=== PATIENT | female | born 1945 | race Two or more races ===

== ENCOUNTER 2018-11-10 10:23 | Outpatient (CLI) | payer OTHER | END 2018-11-10 11:26 | disposition home or self-care (01) | LOC: RAD 501 10:23 | DX: S52.501A Unspecified fracture of the lower end of right radius, initial encounter for closed fracture (principal); M25.512 Pain in left shoulder ==

== ENCOUNTER 2022-01-14 13:53 | Outpatient (CLI) | payer OTHER | END 2022-01-14 14:10 | disposition home or self-care (01) | LOC: TOM 13:53 | DX: M31.6 Other giant cell arteritis (principal) ==

== ENCOUNTER 2022-01-14 14:29 | Outpatient (CLI) | payer OTHER | END 2022-01-14 14:47 | disposition home or self-care (01) | LOC: LAB 14:29 | DX: M31.6 Other giant cell arteritis (principal); G04.81 Other encephalitis and encephalomyelitis; M06.9 Rheumatoid arthritis, unspecified ==

== ENCOUNTER 2022-01-20 09:03 | Outpatient (CLI) | payer OTHER | END 2022-01-20 09:04 | disposition home or self-care (01) | LOC: LAB 09:03 | DX: M31.6 Other giant cell arteritis (principal); G04.81 Other encephalitis and encephalomyelitis; M06.9 Rheumatoid arthritis, unspecified ==

== ENCOUNTER 2022-01-22 09:02 | Outpatient (CLI) | payer OTHER | END 2022-01-22 10:51 | disposition home or self-care (01) | LOC: LAB 09:02 | DX: E03.9 Hypothyroidism, unspecified (principal); E55.9 Vitamin D deficiency, unspecified; Z12.11 Encounter for screening for malignant neoplasm of colon ==

== ENCOUNTER 2022-01-23 10:29 | Outpatient (CLI) | payer OTHER | END 2022-01-23 12:41 | disposition home or self-care (01) | LOC: LAB 10:29 | DX: E55.9 Vitamin D deficiency, unspecified (principal); Z12.11 Encounter for screening for malignant neoplasm of colon; E03.9 Hypothyroidism, unspecified ==